=== PATIENT | male | born 1980 | race African-American/Black ===

== ENCOUNTER 2022-11-19 15:29 | Inpatient (IN) | payer MEDICARE, OTHER ==
[~2022-11-19] VITALS: Ht 172.7 cm; Wt 84.4 kg
--- NOTE | 2022-11-19 16:55 | NUR ---
Seizure Precaution: Safety pads provided.
--- NOTE | 2022-11-19 17:00 | NUR ---
JODY FROM [facility] FOR WITNESSED SEIZURE LAST 15 SEC. PT SUSTAINED LACON RIGHT EYEBROW AFTER HITTING DOOR.
--- NOTE | 2022-11-19 17:17 | NUR ---
EKG done by EMT at bedside.
--- NOTE | 2022-11-19 17:20 | NUR ---
aviation safety equipment technician at bedside.
--- NOTE | 2022-11-19 17:26 | NUR ---
Unable to provide urine sample at the moment.
--- NOTE | 2022-11-19 17:47 | NUR ---
Blood drawn and sent to lab.
[2022-11-19] MEDS: LEVETIRACETAM (500MG) 1,000 MG in IV NS 0.9% 100 ML IV SCH (18:10)
[2022-11-19 18:17] LABS: BASOPHILS % (AUTO) 0.2 % (0.0-2.0); EOSINOPHILS % (AUTO) 0.3 % (0.0-6.0); HEMATOCRIT 35 % (39-51); HEMOGLOBIN 11.5 g/dL (13.5-17.5); LYMPHOCYTES # (AUTO) 1.1 K/uL (0.8-4.8); LYMPHOCYTES % (AUTO) 13.6 % (20.0-44.0); MEAN CORPUSCULAR HGB CONC 34 g/dl (31.0-36.0); MEAN CORPUSCULAR VOLUME 89 fL (80-96); MONOCYTES # (AUTO) 0.5 K/uL (0.1-1.30); MONOCYTES % (AUTO) 6.5 % (2.0-12.0); NEUTROPHILS # (AUTO) 6.7 K/uL (1.8-8.9); NEUTROPHILS % (AUTO) 79.4 % (43.0-81.0); RED BLOOD CELL COUNT(AUTO) 3.88 MIL/uL (4.5-6.0); WHITE BLOOD COUNT (AUTO) 8.4 K/uL (4.3-11.0)
--- NOTE | 2022-11-19 18:40 | NUR ---
Urine sample collected and sent to lab.
[2022-11-19 19:03] LABS: PLATELET COUNT (AUTO) 195 K/uL (150-450)
[2022-11-19 19:06] LABS: ALANINE AMINOTRANSFERASE 23 U/L (12-78); ALBUMIN 3.6 g/dL (3.4-5.0); ALKALINE PHOSPHATASE 127 U/L (46-116); ASPARTATE AMINOTRANSFERASE 19 U/L (15-37); BILIRUBIN,DIRECT 0.2 mg/dL (0.0-0.2); BILIRUBIN,TOTAL 0.8 mg/dL (0.2-1.0); CALCIUM, SERUM 8.4 mg/dL (8.5-10.1); CARBON DIOXIDE 26 mmol/L (21-32); CREATININE 0.7 mg/dL (0.6-1.3); GLUCOSE 100 mg/dL (74-106); TOTAL PROTEIN, SERUM 6.8 g/dL (6.4-8.2); UREA NITROGEN, BLOOD 6 mg/dL (7-18)
[2022-11-19 19:18] LABS: CHLORIDE 61 mmol/L (98-107); POTASSIUM 2.4 mmol/L (3.5-5.1); SODIUM SERUM 90 mmol/L (136-145)
[2022-11-19 19:23] LABS: ALCOHOL, BLOOD < 3 mg/dL (0-0)
[2022-11-19] MEDS ORDERED: IV PREMIX D5 NS + KCL 1,000 ML IV ONE (19:30)
[2022-11-19] MEDS ORDERED: IV NS 0.9% 1,000 ML BAG IV ONE ×2 (19:30→20:00)
[2022-11-19 19:34] LABS: THYROID STIMULATING HORMONE 1.246 uIU/mL (0.358-3.74)
--- NOTE | 2022-11-19 19:51 | NUR ---
COVID SWAB COLLECTED
--- NOTE | 2022-11-19 19:51 | NUR ---
SECOND LINE ESTABLISHED, ADELINA
[2022-11-19] MEDS ORDERED: POTASSIUM CL. PREMIX PERIPHER. 200 ML ONE (20:09)
--- NOTE | 2022-11-19 20:18 | NUR ---
PAGED DR SILVER @ FOR NEPHRO CONSULT
[2022-11-19] MEDS: POTASSIUM CL. PREMIX PERIPHER. 50 ML IV SCH ×4 (20:23→22:37)
--- NOTE | 2022-11-19 20:25 | NUR ---
DR MURPHY ON THE PHONE WITH DR ROSE
[2022-11-19 21:05] LABS: CALCIUM, SERUM 8.5 mg/dL (8.5-10.1); CREATININE 0.7 mg/dL (0.6-1.3)
[2022-11-19] MEDS ORDERED: MAGNESIUM HYDROXIDE 30 ML UDC PO PRN (21:30)
[2022-11-19] MEDS ORDERED: Z GUARD REMEDY 4 OZ OINT TP PRN (21:30)
[2022-11-19] MEDS ORDERED: ONDANSETRON HCL/PF 4 MG/2 ML VIAL IVP PRN (21:30)
[2022-11-19] MEDS ORDERED: ZOLPIDEM TARTRATE 5 MG TABLET PO PRN (21:30)
[2022-11-19] MEDS ORDERED: ACETAMINOPHEN 325 MG TABLET PO PRN (21:30)
[2022-11-19] MEDS ORDERED: MAG HYDROX/AL HYDROX/SIMETH 30 ML UDC PO PRN (21:30)
[2022-11-19] MEDS ORDERED: LORAZEPAM INJ 2 MG/ML VIAL IV PRN (22:30)
[2022-11-19] MEDS ORDERED: LEVETIRACETAM (500MG) 500 MG in IV NS 0.9% 100 ML IV SCH (22:30)
--- NOTE | 2022-11-19 22:43 | NUR ---
ICU WILL CALL ME BACK FOR REPORT
[2022-11-19] MEDS ORDERED: ENOXAPARIN SODIUM 40 MG/0.4 ML DISP.SYRIN SQ ONE (23:43)
[2022-11-20] VITALS (20 sets, daily range): BP systolic 92–131; BP diastolic 44–76
--- NOTE | 2022-11-20 01:42 | NUR ---
REPORT GIVEN TO EDWIN DOHERTY FOR CHERRY
--- NOTE | 2022-11-20 02:38 | NUR ---
PT TX TO ICU VIS PAM ACLS PROTOCOLS
--- NOTE | 2022-11-20 02:45 | NUR ---
RN ADMITTING NOTE RECEIVED PATIENT FROM ER. PT IS A/O X 4, IN NO SIGN OF ACUTE DISTRESS, ON RA, SATING 100%, COMPREHENSIVE PHYSICAL ASSESSMENT AND PATIENT CARE DONE. nO SKIN ISSUE. NO VISIBLE LACERATION ON RT EYEBROW. NO OTHER SKIN ISSUES NOTED. NOTED IV LINE AT LT HAND #20G AND RT AC #20G. VITAL SIGNS TAKEN. BELONGINGS CHECKED AND FORM PLACED ON FILE. URINAL AT BEDSIDE. SAFETY MEASURES AND SEIZURE PRECAUTION IN PLACE, CALL LIGHT WITHIN REACH OF PATIENT, BED ON LOWEST POSITION, SIDE RAILS UP X 4. WILL CONTINUE MONITOR AND ASSESS THROUGHOUT THE SHIFT. WILL CARRY OUT MD ORDERS ACCORDINGLY.
[2022-11-20] MEDS: IV NS 0.9% 1,000 ML IV PRN ×3 (02:47→13:00)
[2022-11-20] MEDS ORDERED: LEVETIRACETAM (500MG) 500 MG/5 ML VIAL IV ONE (02:52)
[2022-11-20 04:29] LABS: HEMATOCRIT 34 % (39-51); HEMOGLOBIN 11.7 g/dL (13.5-17.5); LYMPHOCYTES # (AUTO) 1.1 K/uL (0.8-4.8); MEAN CORPUSCULAR HGB CONC 34 g/dl (31.0-36.0); MEAN CORPUSCULAR VOLUME 89 fL (80-96); MONOCYTES # (AUTO) 0.6 K/uL (0.1-1.30); MONOCYTES % (AUTO) 10.7 % (2.0-12.0); NEUTROPHILS # (AUTO) 3.7 K/uL (1.8-8.9); NEUTROPHILS % (AUTO) 69.3 % (43.0-81.0); PLATELET COUNT (AUTO) 263 K/uL (150-450); RED BLOOD CELL COUNT(AUTO) 3.87 MIL/uL (4.5-6.0); WHITE BLOOD COUNT (AUTO) 5.4 K/uL (4.3-11.0)
--- NOTE | 2022-11-20 04:55 | NUR ---
KEPPRA 500MG IV ORDER CLARIFIED WITH CHARGE NURSE AND WITH DR. PARKER.
[2022-11-20 04:59] LABS: CALCIUM, SERUM 8.6 mg/dL (8.5-10.1); CREATININE 0.7 mg/dL (0.6-1.3); PHOSPHORUS 1.5 mg/dL (2.5-4.9); POTASSIUM 4.1 mmol/L (3.5-5.1)
[2022-11-20] MEDS: LEVETIRACETAM (500MG) 1,000 MG in IV NS 0.9% 100 ML IV SCH (05:30)
--- NOTE | 2022-11-20 06:35 | NUR ---
PT AWAKE, RESTING COMFORTABLY. A/O X 4, IN NO SIGN OF ACUTE DISTRESS, ON RA, SATING 96%, IV ACCESS ON LT HAND #20G AND RT AC #20G INFUSING 0.9 NS AT 125 ML/HR. URINAL AT BEDSIDE. SAFETY MEASURES AND SEIZURE PRECAUTION MAINTAINED, CALL LIGHT WITHIN REACH OF PATIENT, BED ON LOWEST POSITION, SIDE RAILS UP X 4. WILL ENDORSE TO NEXT NURSE ON DUTY FOR CONTINUITY OF CARE.
--- NOTE | 2022-11-20 08:00 | NUR ---
RN NOTES RECEIVED PATIENT A/O X3/4, ROOM AIR, ABLE TO VERBALIZE NEEDS, REFUSED PAIN, HR-89 SR BEDSIDE MONITOR. INFUSING NS@125 ML/HR ON PENNY INTACT. PATIENT USING URINAL , REGULAR DIET, TOLERATED BREAKFAST WELL. ABLE TO TURN AND REPOSTION SELF IN THE BED. NO SEIZURE NOTED, SAFETY PRECAUTION MAINTAINED ALL THE TIME, SIDE RAILS PADDED. CALL LIGHT WITHIN TO REACH. DUE MEDICATION ADMINISTERED. WILL FOLLOW UP.
[2022-11-20] MEDS ORDERED: QUET300T2 PO (08:28)
[2022-11-20] MEDS ORDERED: LORA-259 PO (08:28)
[2022-11-20] MEDS ORDERED: HYDR25TA4 PO (08:28)
[2022-11-20] MEDS ORDERED: GABA-532 PO (08:28)
[2022-11-20] MEDS ORDERED: OLAN10TA3 PO (08:28)
[2022-11-20] MEDS ORDERED: MULT-447 PO (08:28)
[2022-11-20] MEDS ORDERED: PANTOPRAZOLE 40 MG VIAL IV SCH (09:00)
--- NOTE | 2022-11-20 12:00 | NUR ---
RN NOTES BS-63 MG/DL ,TOLERATED LUNCH WELL. GET ORDER TO TRANSFER TO THE TELE UNIT ROOM 324 BED 2. WILL GIVE BEDSIDE REPORT PER RN.
--- NOTE | 2022-11-20 12:02 | NUR ---
SS consult requested for homelessness. SW will follow up at a later time. No DC plans for today.
[2022-11-20] MEDS: LEVETIRACETAM (500MG) 500 MG in IV NS 0.9% 100 ML IV SCH (12:37)
[2022-11-20] MEDS ORDERED: K PHOS NEUTRAL 250 MG TABLET PO ONE (13:00)
--- NOTE | 2022-11-20 13:30 | NUR ---
rn notes transferred patient to the TELE unit room 324 bed 12 within stable condition, patient room air, no pain, vss. endorsed RN follow plan of care.
--- NOTE | 2022-11-20 14:00 | NUR ---
MS RN NOTES RECEIVED PATIENT FROM ICU AWAKE, A/OX4. NO SIGNS OF CARDIAC OR RESPIRATORY DISTRESS. ON RA, TOLERATING WELL. INITIAL VITAL TAKEN, STABLE AND RECORDED. WITH IV ACCESS AT LEFT HAND G. 20 SL AND RAC G.20 @125ML/HR. NO COMPLAIN OF PAIN OR DISCOMFORT AT THIS TIME. KEPT COMFORTABLE. WILL CONTINUE TO MONITOR.
[2022-11-20] MEDS ORDERED: LORAZEPAM 1 MG TABLET PO PRN (18:00)
--- NOTE | 2022-11-20 18:17 | NUR ---
MS RN CLOSING NOTES PATIENT AWAKE, A/OX4. NO SIGNS OF CARDIAC OR RESPIRATORY DISTRESS. ON RA, TOLERATING WELLWITH IV ACCESS AT RAC G.20 @125ML/HR. NO COMPLAIN OF PAIN OR DISCOMFORT AT THIS TIME. KEPT COMFORTABLE. ALL MEDS GIVEN. SAFETY MEASURES IN PLACE: CALL LIGHT WITHIN REACH, SIDE RAILS UP X 3, BED LOCKED IN LOWEST POSITION, HOB ELEVATED, BED ALARM ON. ENDORSED TO DAYSHIFT RN FOR CONTINUITY OF CARE
[2022-11-20] MEDS: GABAPENTIN 300 MG CAPSULE PO SCH (18:53)
--- NOTE | 2022-11-20 19:00 | NUR ---
RN OPENING NOTE PT IS AWAKE, A/O X 4,ABLE TO MAKE NEEDS KNOWN. ORIENTED TO STAFF AND UNIT. PT IN RA. TOLERATING WELL, BREATHING EVEN,& UNLABORED AT THIS TIME. PT IV ACCESS IS AT RAC #20G INTACT, PATENT & FLUSHES WELL. PT EXTERNAL WARD CLERK WITH READING SR HR 84. SKIN IS WARM & DRY. SAFETY MEASURES INITIATED, BED PLACED IN LOWEST, LOCKED POSITION, SIDERAILS X 2, BEDSIDE TABLE AND CALL LIGHT IN EASY REACH. TO CONTINUE TO MONITOR PT ACCORDINGLY.
[2022-11-20] MEDS: ENOXAPARIN SODIUM 40 MG/0.4 ML DISP.SYRIN SQ SCH ×2 (22:56)
[2022-11-21] VITALS: BP 127/80
[2022-11-21] MEDS ORDERED: LEVETIRACETAM (500MG) 500 MG/5 ML VIAL IV ONE (01:14)
[2022-11-21] MEDS: LEVETIRACETAM (500MG) 500 MG in IV NS 0.9% 100 ML IV SCH ×2 (01:23→10:33)
[2022-11-21] MEDS: IV NS 0.9% 1,000 ML IV PRN (01:29)
[2022-11-21 04:00] VITALS: BP 124/76
[2022-11-21 05:59] LABS: BASOPHILS % (AUTO) 0.4 % (0.0-2.0); EOSINOPHILS % (AUTO) 0.3 % (0.0-6.0); HEMATOCRIT 33 % (39-51); LYMPHOCYTES # (AUTO) 2.2 K/uL (0.8-4.8); LYMPHOCYTES % (AUTO) 41.4 % (20.0-44.0); MEAN CORPUSCULAR HGB CONC 34 g/dl (31.0-36.0); MEAN CORPUSCULAR VOLUME 90 fL (80-96); MONOCYTES # (AUTO) 0.5 K/uL (0.1-1.30); MONOCYTES % (AUTO) 9.2 % (2.0-12.0); NEUTROPHILS # (AUTO) 2.6 K/uL (1.8-8.9); NEUTROPHILS % (AUTO) 48.7 % (43.0-81.0); PLATELET COUNT (AUTO) 247 K/uL (150-450); RED BLOOD CELL COUNT(AUTO) 3.64 MIL/uL (4.5-6.0); WHITE BLOOD COUNT (AUTO) 5.3 K/uL (4.3-11.0)
--- NOTE | 2022-11-21 06:44 | NUR ---
RN CLOSING NOTE PT IS AWAKE. RESPOSNIVE AND FOLLOWS VERBAL COMMAND. A/O X 4. NO S/S OF RESPIRATORY DISTRESS NOTED. ON TELE MONITOR SR HR 73. IV SITE RAC #20 RUNNING NS @125 ML/HR. MEDICATION ADMINISTERED ACCORDINGLY PER MD'S ORDER. SAFETY MEASURES IS MAINTAINED. BED AT ITS LOWEST AND LOCKED POSITION, SIDERAILS X 2, BEDSIDE TABLE AND CALL LIGHT IN EASY REACH. TO ENDORSE TO THE NEXT SHIFT FOR CONTINUITY OF CARE.
[2022-11-21 07:00] VITALS: BP 137/86
[2022-11-21 07:06] LABS: CALCIUM, SERUM 8.5 mg/dL (8.5-10.1); CREATININE 0.7 mg/dL (0.6-1.3); MAGNESIUM 1.9 mg/dL (1.8-2.4); PHOSPHORUS 3.8 mg/dL (2.5-4.9); POTASSIUM 3.5 mmol/L (3.5-5.1)
--- NOTE | 2022-11-21 07:35 | NUR ---
RN OPENING NOTE: RECEIVED PT AWAKE, A/O X 4, ABLE TO MAKE NEEDS KNOWN. PT ON RA, TOLERATING WELL, BREATHING EVEN,& UNLABORED AT THIS TIME. TELE MONITOR READS SR, HR= 73. IV ACCESS IS AT RAC #20G INTACT, PATENT & FLUSHES WELL. DENIES PAIN AT THIS TIME. SAFETY MEASURES INITIATED, BED PLACED IN LOWEST, LOCKED POSITION, SIDERAILS X 2, BEDSIDE TABLE AND CALL LIGHT IN EASY REACH, WILL CONT WITH PLAN OF CARE DURING SHIFT.
[2022-11-21] MEDS: GABAPENTIN 300 MG CAPSULE PO SCH ×3 (08:13→17:00)
[2022-11-21] MEDS ORDERED: MULTIVIT W/MINERALS 1 TAB TABLET PO SCH (09:00)
[2022-11-21] MEDS ORDERED: PANTOPRAZOLE 40 MG VIAL IV SCH (09:00)
[2022-11-21 12:00] VITALS: BP 133/78
[2022-11-21] MEDS ORDERED: OLANZAPINE 10 MG TABLET PO SCH (12:30)
[2022-11-21 16:00] VITALS: BP 129/79
--- NOTE | 2022-11-21 17:05 | NUR ---
RN DC NOTES: PT STABLE FOR DC, VITALS WNL. REPORT BY PHONE GIVEN TO SONIDO FROM [facility]. DISCUSSED DC INSTRUCTIONS AND BELONGINGS LIST, PT VERBALIZED UNDERSTANDING AND SIGNED DOCS. ID BAND AND IV ACCESS REMOVED. PT LEFT UNIT VIA GURNEY, TRANSPORTATION IS [facility].
[2022-11-21] MEDS ORDERED: LEVETIRACETAM (250 MG) 250 MG TABLET PO SCH (21:00)
== END 2022-11-21 18:43 | DRG 640 ==
LOC: ER 15:29 → ICU 22:16 → TELE 11-20 13:41
PROVIDERS: ADMIT Student in an Organized Health Care Education/Training Program; ATTEND Student in an Organized Health Care Education/Training Program
PROC: 02HV33Z Insertion of Infusion Device into Superior Vena Cava, Percutaneous Approach (ICD-10-PCS; principal; 2022-11-20)
PROC: B548ZZA Ultrasonography of Superior Vena Cava, Guidance (ICD-10-PCS; 2022-11-20)
DX: E87.1 Hypo-osmolality and hyponatremia (principal); G93.41 Metabolic encephalopathy; R45.851 Suicidal ideations; R56.9 Unspecified convulsions; Z20.822 Contact with and (suspected) exposure to COVID-19; G62.9 Polyneuropathy, unspecified; I10 Essential (primary) hypertension; Z88.8 Allergy status to other drugs, medicaments and biological substances; F20.9 Schizophrenia, unspecified; E87.6 Hypokalemia; D64.9 Anemia, unspecified; Z79.899 Other long term (current) drug therapy; Y92.099 Unspecified place in other non-institutional residence as the place of occurrence of the external cause; W18.09XA Striking against other object with subsequent fall, initial encounter
CPT/HCPCS: 36415; 70450-TC; 70486-TC; 71045-TC; 80048-TC; 80076-TC; 82140-TC; 82962-TC; 83735-TC; 84100-TC; 84295-TC; 84443-TC; 85025-TC; 87081-TC; 92526; 92611-TC; 95819-TC; C9113; C9803; G0378; G0480; J1650; J1953; J3480; J3490; J7030